=== PATIENT | female | born 1955 | race Hispanic/Latino ===

== ENCOUNTER 2021-07-26 09:43 | Emergency (ER) | payer MEDICAID, OTHER ==
[~2021-07-26] VITALS: Ht 157.5 cm; Wt 145.1 kg
[2021-07-26 09:56] VITALS: BP 177/77
== END 2021-07-26 11:01 | disposition home or self-care (01) ==
LOC: EDH 09:43
DX: S80.11XA Contusion of right lower leg, initial encounter (principal); S80.12XA Contusion of left lower leg, initial encounter; E11.9 Type 2 diabetes mellitus without complications; E78.00 Pure hypercholesterolemia, unspecified; I10 Essential (primary) hypertension; Z88.0 Allergy status to penicillin; Z90.49 Acquired absence of other specified parts of digestive tract; W18.39XA Other fall on same level, initial encounter; Y93.89 Activity, other specified; Y92.89 Other specified places as the place of occurrence of the external cause; Y99.8 Other external cause status
CPT/HCPCS: 73562; 73590; 73610; 73630

== ENCOUNTER 2023-04-11 18:55 | Emergency (ER) | payer OTHER ==
[~2023-04-11] VITALS: Ht 152.4 cm; Wt 90.7 kg
[2023-04-11 19:29] LABS: BASOPHILS # (AUTO) 0.01 K/uL (0.00-0.20); BASOPHILS % (AUTO) 0.2 % (0.0-5.0); HEMATOCRIT 32.4 % (36-48); IMMATURE GRANULOCYTE ABSOLUTE 0.03 K/uL (0-1); LYMPHOCYTES # (AUTO) 0.8 K/uL (1.0-4.8); LYMPHOCYTES % (AUTO) 19.5 % (21.0-51.0); MEAN CORPUSCULAR HEMOGLOBIN 30.8 pg (27.0-33.0); MEAN CORPUSCULAR HGB CONC 33.3 g/dL (32.0-36.0); MEAN CORPUSCULAR VOLUME 92.3 fL (79-99); MONOCYTES # (AUTO) 0.2 K/uL (0.1-1.0); MONOCYTES % (AUTO) 5.7 % (3.0-13.0); NEUTROPHILS # (AUTO) 3.1 K/uL (1.8-7.7); NEUTROPHILS % (AUTO) 73.9 % (40.0-77.0); PLATELET COUNT (AUTO) 91 K/uL (130-400); RED BLOOD CELL COUNT(AUTO) 3.51 MIL/uL (4.00-5.50); RED CELL DISTRIBUTION WIDTH 15.6 % (11.0-15.5); WHITE BLOOD COUNT (AUTO) 4.2 K/uL (4.8-10.8)
[2023-04-11 19:34] LABS: RAPID GROUP A STREP negative (NEGATIVE)
[2023-04-11 19:39] LABS: SARS-CoV-2, RNA, NAAT NEGATIVE SARS CoV-2 (NEGATIVE)
[2023-04-11 19:43] LABS: INFLUENZA TYPE A Negative For Type A (NEGATIVE); INFLUENZA TYPE B Negative For Type B (NEGATIVE)
[2023-04-11 19:43] LABS: ALBUMIN 2.9 g/dL (3.5-5.0); BILIRUBIN,TOTAL 2.7 mg/dL (0.2-1.0); CREATININE 1.1 mg/dL (0.5-1.5); POTASSIUM 3.4 mmol/L (3.5-5.1); TOTAL PROTEIN, SERUM 6.5 g/dL (6.0-8.3)
[2023-04-11] MEDS ORDERED: KCL 20 MEQ ERTAB PO ONE (22:00)
[2023-04-11] MEDS ORDERED: KETOROLAC 30MG VIAL (30MG/ML) IM ONE (22:00)
[2023-04-11 22:10] VITALS: BP 141/56; PULSE 88; RESP 18; O2SAT 100
== END 2023-04-11 23:54 | disposition home or self-care (01) ==
LOC: EDH 18:55
DX: S39.012A Strain of muscle, fascia and tendon of lower back, initial encounter (principal); B34.9 Viral infection, unspecified; E87.6 Hypokalemia; I10 Essential (primary) hypertension; E11.9 Type 2 diabetes mellitus without complications; Z20.822 Contact with and (suspected) exposure to COVID-19; E78.00 Pure hypercholesterolemia, unspecified; Z90.49 Acquired absence of other specified parts of digestive tract; Z88.0 Allergy status to penicillin; X58.XXXA Exposure to other specified factors, initial encounter; Y93.89 Activity, other specified; Y92.89 Other specified places as the place of occurrence of the external cause; Y99.8 Other external cause status
CPT/HCPCS: 99285; 71045; 87635; 84484; 80053; 85025; 87880; 87804 ×2; 36415; 96372; 93005; J1885

== ENCOUNTER 2023-07-19 11:55 | Inpatient (IN) | payer OTHER, MEDICARE ==
[~2023-07-19] VITALS: Ht 165.1 cm; Wt 136.1 kg
[~2023-07-19 11:55] MED LIST: ATOR10TA69 PO; GABA300C PO; LOSA50TA64 PO; ONDA4TAB10 PO; PANT40TA54 PO; SITA1TAB6 PO; SITA1TBM4 PO; TIRZ5PEN SQ
[2023-07-19] MEDS: NOREPINEPHRIN 4MG/NS 250ML 0 ML IV ONE (12:44)
[2023-07-19] MEDS: 0.9%NACL 1000ML 1,000 ML IV ONE (13:06)
[2023-07-19] MEDS ORDERED: ACETAMINOPHEN 325 MG TAB PO PRN (13:30)
[2023-07-19] MEDS ORDERED: ONDANSETRON 4MG INJ IVP PRN (13:30)
[2023-07-19] MEDS ORDERED: MORPHINE 2 MG SYG IVP PRN (13:30)
[2023-07-19 18:05] VITALS: O2SAT 88
[2023-07-19 20:00] VITALS: BP 68/31; PULSE 105; RESP 16
[2023-07-19 20:05] VITALS: O2SAT 94
[2023-07-19] MEDS ORDERED: LOSA1TAB37 PO (20:47)
[2023-07-19] MEDS ORDERED: LORA2VIA34 IJ (20:54)
[2023-07-19] MEDS ORDERED: APIX2.5T PO (20:54)
[2023-07-19] MEDS ORDERED: [UNRECOGNIZED DRUG - CODE] IV (20:54)
[2023-07-19] MEDS ORDERED: MIRT7.5T11 PO (20:54)
[2023-07-20 08:00] VITALS: BP 72/39; PULSE 93; RESP 18; O2SAT 93
[2023-07-20 11:53] VITALS: BP 60/32; PULSE 97; RESP 17
[2023-07-20 16:00] VITALS: BP 40/29; PULSE 101
[2023-07-20 20:53] VITALS: BP 45/27; PULSE 116; RESP 20
== END 2023-07-21 00:30 | DRG 951 ==
LOC: EDH 11:55 → EDHIP 13:09 → 3AH 17:12
PROVIDERS: ADMIT Internal Medicine Infectious Disease; ATTEND Internal Medicine Infectious Disease
DX: Z51.5 Encounter for palliative care (principal); J96.00 Acute respiratory failure, unspecified whether with hypoxia or hypercapnia; I82.401 Acute embolism and thrombosis of unspecified deep veins of right lower extremity; Z68.42 Body mass index [BMI] 45.0-49.9, adult; E86.0 Dehydration; K52.9 Noninfective gastroenteritis and colitis, unspecified; E11.9 Type 2 diabetes mellitus without complications; Z66 Do not resuscitate; I95.9 Hypotension, unspecified; E66.9 Obesity, unspecified; E78.5 Hyperlipidemia, unspecified; I10 Essential (primary) hypertension; Z74.01 Bed confinement status; Z88.0 Allergy status to penicillin; Z83.3 Family history of diabetes mellitus; Z86.12 Personal history of poliomyelitis; Z90.49 Acquired absence of other specified parts of digestive tract
CPT/HCPCS: G0378; J3490